=== PATIENT | female | born 1995 | race Caucasian/White ===

== ENCOUNTER 2023-06-23 04:23 | Emergency (ER) | payer SELFPAY ==
[~2023-06-23] VITALS: Ht 157.5 cm; Wt 89.0 kg
[2023-06-23 04:36] VITALS: TEMP 98.1; O2SAT 98
[2023-06-23 04:56] LABS: BASOPHILS % 0.7 % (0.0-2.0); EOSINOPHILS % 2.1 % (0.0-5.0); HEMATOCRIT. 36.5 % (36.0-48.0); HEMOGLOBIN. 12.3 g/dL (12.0-16.0); LYMPHOCYTES % 24.6 % (20.0-50.0); MEAN CORPUSCULAR HEMOGLOBIN 28.7 pg (28.0-32.0); MEAN CORPUSCULAR HGB CONC 33.7 g/dL (31.0-37.0); MEAN PLATELET VOLUME 9.5 fl (7.4-10.4); MONOCYTES % 4.2 % (2.0-8.0); NEUTROPHILS % 68.4 % (40.0-76.0); PLATELET 218 x1000/uL (130-400); RED BLOOD CELL COUNT 4.29 mill/uL (4.2-5.4); RED CELL DISTRIBUTION WIDTH 13.9 % (11.6-14.6); WHITE BLOOD COUNT 11.6 x1000/uL (4.5-11.0)
[2023-06-23 05:15] LABS: ALANINE AMINOTRANSFERASE 14 IU/L (10-49); ALBUMIN 4.6 g/dL (3.2-4.8); ASPARTATE AMINOTRANSFERASE 19 IU/L (<34); BILIRUBIN TOTAL 0.3 mg/dL (0.1-1.0); CALCIUM 8.6 mg/dL (8.7-10.4); CARBON DIOXIDE 28 mEq/L (21-32); CHLORIDE 107 mEq/L (98-107); CREATININE 0.6 mg/dL (0.6-1.0); GLUCOSE 112 mg/dL (70-105); POTASSIUM 4.1 mEq/L (3.5-5.1); PROTEIN TOTAL 7.4 g/dL (6.0-8.3); SODIUM 138 mEq/L (136-145); UREA NITROGEN BLOOD 10 mg/dL (9-23)
[2023-06-23 05:16] LABS: HCG SCREEN NEGATIVE
[2023-06-23 06:03] LABS: CLARITY URINE TURBID (CLEAR); COLOR URINE RED (YELLOW); GLUCOSE URINE NEGATIVE (NEGATIVE); KETONES URINE NEGATIVE (NEGATIVE); LEUKOCYTE ESTERASE URINE 2+ (NEGATIVE); NITRITE URINE NEGATIVE (NEGATIVE); OCCULT BLOOD URINE 3+ (NEGATIVE); PROTEIN URINE 2+ (NEGATIVE); UROBILINOGEN URINE 0.2 E.U./dL (0.2-1.0)
[2023-06-23 07:48] LABS: SQUAMOUS EPITHELIAL CELL URINE FEW /lpf (RARE/1+)
[2023-06-23 07:51] LABS: RBC URINE TNTC /hpf (0-2)
[2023-06-23 07:52] LABS: BACTERIA URINE 1+
[2023-06-23] MEDS ORDERED: ONDANSETRON 4MG ODT PO STA (08:27)
[2023-06-23] MEDS ORDERED: MAGNESIUM/ALUMINUM HYDROXIDE/SIMETHICONE 30ML UDC PO STA (08:27)
[2023-06-23] MEDS ORDERED: ACETAMINOPHEN 325MG TABLET PO STA (08:27)
[2023-06-23] MEDS ORDERED: NITR100C PO (10:31)
[2023-06-23 11:50] VITALS: BP 137/62; PULSE 66; RESP 20
[2023-06-23] MEDS: ACETAMINOPHEN 325MG TABLET PO NR (11:50)
[2023-06-23] MEDS: DICYCLOMINE 10 MG/5 ML ORAL SYR PO STA (11:50)
[2023-06-23] MEDS: MAGNESIUM/ALUMINUM HYDROXIDE/SIMETHICONE 30ML UDC PO NR (11:50)
[2023-06-23] MEDS: ONDANSETRON 4MG ODT PO NR (11:50)
== END 2023-06-23 11:52 | disposition home or self-care (01) ==
LOC: ER 04:23
DX: N39.0 Urinary tract infection, site not specified (principal)
CPT/HCPCS: 99284; 76705; 80053; 81003; 84703; 83690; 85025; 36415; Q0162